=== PATIENT | female | born 1995 | race Two or more races ===

== ENCOUNTER 2020-02-01 14:03 | Outpatient (REF) | payer MEDICAID, SELFPAY | END 2020-02-01 14:04 | disposition home or self-care (01) | LOC: HO.LAB 14:03 | PROVIDERS: Visit Provider Internal Medicine | DX: Z20.828 Contact with and (suspected) exposure to other viral communicable diseases (principal) | CPT/HCPCS: C9803; U0003 ==

== ENCOUNTER 2020-03-29 14:23 | Emergency (ER) | payer MEDICAID, SELFPAY ==
[2020-03-29 14:40] VITALS: BP 113/68; PULSE 83; RESP 18; TEMP 36.2; O2SAT 98; BMI 24.7
--- NOTE | 2020-03-29 15:08 | ED_ITS ---
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 No injury or trauma. The patient tells me that when she was bending down at home to pick something up she fell her low back and has had persistent pain since then. No radiation of pain. No numbness or tingling. No bowel or bladder incontinence. The patient is ambulatory. MD elicited complaint: back pain Onset (ago): day(s) Timing: constant Severity: mild Quality: aching Location: lumbar spine Radiation: none Exacerbating factors: none Relieving factors: none Context: bending Associated symptoms: denies other symptoms Related Data Previous Rx's Medication Instructions Recorded cyclobenzaprine 10 mg PO TID PRN #10 tab 03/29/20 naproxen 500 mg PO BID PRN #20 tab 03/29/20 Allergies Allergy/AdvReac Type Severity Reaction Status Date / Time No Known Drug Allergies Allergy Unknown UNKNOWN Verified 03/29/20 14:39 Review of Systems Review of Systems: Yes all other systems are reviewed and are negative Constitutional: Constitutional: Reports no additional constitutional complaints, Denies body ache(s), Denies chills, Denies fever(s), Denies headache(s) and Denies weakness Eyes: Eyes: Reports no additional eye complaints and Denies change in vision ENT: Reports system reviewed and no additional complaints, except as documen rosalie, Denies dizziness, Denies headache(s), Denies nasal congestion, Denies nasal discharge and Denies neck pain Cardiovascular: Cardiovascular: Reports no additional cardiovascular complaints, Denies chest pain, Denies leg edema and Denies dyspnea Respiratory: Respiratory: Reports no additional respiratory complaints, Denies cough and Denies dyspnea Gastrointestinal: Gastrointestinal: Reports no additional gastrointestinal complaints, Denies abdominal pain, Denies diarrhea, Denies nausea and Denies vomiting Genitourinary: Genitourinary: Reports no additional female genitourinary complaints and Denies urinary incontinence Musculoskeletal: Musculoskeletal: Reports no additional musculoskeletal complaints, Denies back pain, Denies arthralgias, Denies joint swelling, Denies neck pain, Denies numbness and Denies tingling Integumentary/Breasts: Skin/Breast: Reports system reviewed and no additional complaints, except as docu and Denies rash Neurologic: Reports system reviewed and no additional complaints, except as documented, Denies Abnormal speech present, Denies dizziness, Denies headache(s), Denies numbness, Denies tingling and Denies weakness PMFSH Past Medical History Attestation statement: The following information was validated with the patient. Source: old records reviewed and nursing notes reviewed Medical History Epilepsia Social History Social History Advance Directives: No Advance Directives Information Provided: No Physical Exam Vital Signs: Vital Signs: Last Vital Signs Temp 97.2 F 03/29/20 14:40 Pulse 83 03/29/20 14:40 Resp 18 03/29/20 14:40 BP 113/68 03/29/20 14:40 Pulse Ox 98 03/29/20 14:40 Body Mass Index 24.7 Const: General: cooperative, healthy appearing, comfortable and no acute distress Orientation/consciousness: patient oriented x3 Limitations: no limitations HENMT: Head: Yes normal to inspection Ears: hearing grossly normal bilaterally General nose exam: Normal external nose present Face and sinus: Yes normal facial exam Mouth: Normal oral and palatal mucosa present Throat: Yes posterior oropharynx normal Eyes: General: appearance normal, both eyes and all related structures Pupi ls: Equal, round and reactive pupils present Neck: Neck: Yes normal visual inspection Chest: Chest palpation & inspection: normal inspection of the chest Resp: Effort & Inspection: normal respiratory effort Auscultation: clear to auscultation bilaterally Cardio: Rate: regular rate Rhythm: regular rhythm Peripheral pulses: Peripheral pulses 2+ throughout GI: Inspection: Yes normal to inspection Palpation (GI): Soft to palpation and nontender Auscultation: normal bowel sounds Back/Spine/Pelvis: Other: Midline lumbar tenderness. No step-offs or deformities. Thoracic/Lumbar Spine: thoracic and lumbar spine normal to inspection Skin: General skin exam: no rashes or lesions noted Neuro: General: patient oriented x3, no focal motor deficits and normal sensation to monofilament Cranial nerves: Yes Equal, round and reactive pupils present Cognition (Neuro): normal cognition Speech: No Abnormal speech present Gait exam (Neuro): Normal gait present Motor exam (neuro): 5/5 motor strength present throughout Extrem: General: Yes normal to inspection Course Course Course Narrative: 24 yo female here with low back pain x several days. Midline tenderness. Will check imaging, ur , 1600-x-rays unremarkable. Likely lumbar strain. No neurological deficits or red flag symptoms. Reviewed worrisome signs and symptoms and when to return to the emergency department. Comfortable discharge home. MDM - Back Pain/Injury Medical Records Attestation: I reviewed the patient's medical records. Lab Data Attestation: I reviewed the patient's lab results. Labs: Lab Results 03/29/20 Range/Units 15:43 Urine Test NEGATIVE (NEGATIVE) Imaging Data lumbar xray: Attestation: I personally reviewed and interpreted this imaging study as follows: Radiologist's impression: [address] [address] XRay Report Signed Patient: Gabby HarveyMR#: [id number] : 1995Acct:[id number] Age/Sex: 24 / FADM Date: 03/29/20 Loc: HO.ED Attending Dr: Ordering Physician: KIRAN WOLFF NP Date of Service: 03/29/20 Procedure(s): XR lumbar spine 2-3V Accession Number(s): [id number] cc: KIRAN WOLFF NP~ EXAMINATION: XR LUMBOSACRAL SPINE CLINICAL INFORMATION: Low back pain. No trauma COMPARISON: None TECHNIQUE: Three views of the lumbosacral spine. FINDINGS: There is mild straightening of lumbar lordosis. The vertebral heights, alignment and disc heights are normal. There is no visible acute fracture, dislocation or lytic process seen. The soft tissues are normal. XR/XR lumbar spine 2-3V IMPRESSION: Unremarkable lumbar spine exam. Discharge Plan Discharge Clinical Impression: Strain of lumbar region Qualifiers: Encounter type: initial encounter Qualified Code(s): S39.012A - Strain of muscle, fascia and tendon of lower back, initial encounter Patient Disposition: Home, Self-Care Instructions: Low Back Strain (ED) Additional Instructions: Heat or ice Gentle stretching Follow up with her doctor in 5 days if no improvement in symptoms Prescriptions: New naproxen 500 mg tablet 500 mg PO BID PRN (Reason: pain) Qty: 20 RF: 0 cyclobenzaprine 10 mg tablet 10 mg PO TID PRN (Reason: muscle spasm) Qty: 10 RF: 0 Referrals: Physician,Unknown [Primary Care Provider] - 2 days Interventions: ED Discharge Assessment Last Done: 03/29/20 16:11 Discharge Date/Time: 03/29/20 16:35 Print Language: Citizen Of [place]
--- NOTE | 2020-03-29 15:22 | XR_ITS ---
EXAMINATION: XR LUMBOSACRAL SPINE CLINICAL INFORMATION: Low back pain. No trauma COMPARISON: None TECHNIQUE: Three views of the lumbosacral spine. FINDINGS: There is mild straightening of lumbar lordosis. The vertebral heights, alignment and disc heights are normal. There is no visible acute fracture, dislocation or lytic process seen. The soft tissues are normal. XR/XR lumbar spine 2-3V IMPRESSION: Unremarkable lumbar spine exam.
[2020-03-29 15:55] LABS: UPreg QC Valid YES; Urine Pregnancy NEGATIVE (NEGATIVE)
== END 2020-03-29 16:35 | disposition home or self-care (01) ==
PROVIDERS: Nurse Practitioner Family; Emergency Provider Emergency Medicine
DX: S39.012A Strain of muscle, fascia and tendon of lower back, initial encounter (principal); X50.0XXA Overexertion from strenuous movement or load, initial encounter; Y93.89 Activity, other specified; Y92.019 Unspecified place in single-family (private) house as the place of occurrence of the external cause; Y99.9 Unspecified external cause status
CPT/HCPCS: 72100; 81025; 99283

== ENCOUNTER 2020-03-31 15:35 | Outpatient (REF) | payer MEDICAID, SELFPAY | END 2020-03-31 15:36 | disposition home or self-care (01) | LOC: HO.LAB 15:35 | PROVIDERS: Visit Provider Internal Medicine | DX: Z20.828 Contact with and (suspected) exposure to other viral communicable diseases (principal) | CPT/HCPCS: 36415; C9803; U0003 ==

== ENCOUNTER 2020-04-11 10:24 | Outpatient (REF) | payer MEDICAID, SELFPAY | END 2020-04-11 10:25 | disposition home or self-care (01) | LOC: HO.LAB 10:24 | PROVIDERS: Visit Provider Internal Medicine | DX: Z20.822 Contact with and (suspected) exposure to COVID-19 (principal) | CPT/HCPCS: 36415; C9803; U0003 ==

== ENCOUNTER 2020-05-09 12:24 | Outpatient (REF) | payer MEDICAID, SELFPAY | END 2020-05-09 12:25 | disposition home or self-care (01) | LOC: HO.LAB 12:24 | PROVIDERS: Visit Provider Internal Medicine | DX: Z20.822 Contact with and (suspected) exposure to COVID-19 (principal) | CPT/HCPCS: 36415; C9803; U0003; U0005 ==

== ENCOUNTER 2020-06-30 15:37 | Outpatient (REF) | payer MEDICAID, SELFPAY | END 2020-06-30 15:38 | disposition home or self-care (01) | LOC: HO.LAB 15:37 | PROVIDERS: Visit Provider Internal Medicine | DX: Z20.822 Contact with and (suspected) exposure to COVID-19 (principal) | CPT/HCPCS: C9803; U0003; U0005 ==

== ENCOUNTER 2021-09-11 07:50 | Emergency (ER) | payer MEDICAID, SELFPAY ==
--- NOTE | ~2021-09-11 | XR_ITS ---
EXAMINATION: XR SHOULDER, LEFT CLINICAL INFORMATION: Left shoulder pain. COMPARISON: None TECHNIQUE: AP external rotation, Grashey, scapular Y, and axillary views of the left shoulder. FINDINGS: The bones and soft tissues are normal. No fracture. Glenohumeral and acromioclavicular alignment is anatomic with normal joint space. No abnormal soft tissue calcifications. XR/XR shoulder LT min 2V IMPRESSION: Unremarkable left shoulder.
[2021-09-11 07:54] VITALS: BP 118/73; PULSE 73; RESP 18; TEMP 36.8; O2SAT 98; BMI 33.0
--- NOTE | 2021-09-11 08:10 | ED.EXTPRO ---
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 Mode of arrival: ambulatory Limitations: no limitations History of Present Illness MD Complaint: extremity pain Onset (ago): day(s) (1) Pain Consistency: constant Location: left and upper extremity (shoulder) Quality: aching, dull and constant Radiation: none Relieving factors: immobilization Exacerbating factors: range of motion Associated symptoms: denies other symptoms Context: other (states she woke up like this yesterday morning does not remember injury just notes her L shoulder hurts to range it - no prior injury) Related Data Previous Rx's Medication Instructions Recorded cyclobenzaprine 10 mg tablet 10 mg PO TID PRN muscle spasm #10 03/29/20 tabs naproxen 500 mg tablet 500 mg PO BID PRN pain #20 tabs 03/29/20 cyclobenzaprine 10 mg tablet 10 mg PO TID PRN muscle spasm #14 09/11/21 tabs ibuprofen 600 mg tablet 600 mg PO Q6H PRN pain #30 tabs 09/11/21 lidocaine 5 % topical patch 1 patch topical DAILY #30 ea 09/11/21 Allergies Allergy/AdvReac Type Severity Reaction Status Date / Time No Known Drug Allergies Allergy Unknown UNKNOWN Verified 03/29/20 14:39 Review of Systems Review of Systems: Constitutional : No Fever, No Chills ENT/Mouth : No Ear Pain, No Hoarseness, No sore throat Cardiovascular : No Chest Pain, No SOB Respiratory : No Cough, No Dyspnea Gastrointestinal : No Nausea, No Vomiting, No Diarrhea, No abdominal Pain Genitourinary : No Dysuria, No Hematuria Musculoskeletal : positive joint pain, No Myalgias, No Joint Swelling Skin : No Skin lacerations, No rash Neuro : No Weakness, No Numbness, No Loss of Consciousness, No Dizziness, No Headache PMFSH Past Medical History Attestation statement: The following information was validated with the patient. Medical History Epilepsia Social History Social History Alcohol intake: current Alcohol intake frequency: holidays/special occasions only Patient Tobacco Use Status: Current everyday Tobacco user Use of substances other than those prescribed or required for medical reasons: No Advance Directives: No Advance Directives Information Provided: No Patient : No Physical Exam Vital Signs: Vital Signs: Last Vital Signs Temp 98.3 F 09/11/21 08:13 Pulse 73 09/11/21 08:13 Resp 18 09/11/21 08:13 BP 118/73 09/11/21 08:13 Pulse Ox 98 09/11/21 08:13 O2 Del Method 09/11/21 08:13 BMI result Body Mass Index 33.0 Appearance: Alert. Oriented X3. No acute distress. Eyes: Pupils equal, round and reactive to light. ENT: Pharynx normal. Neck: Normal inspection. Neck supple. CVS: Normal heart rate and rhythm. Pulses normal. Respiratory: No respiratory distress. Breath sounds normal. Abdomen: Soft and nontender. Skin: Skin warm and dry. Normal skin color. Normal skin turgor. Extremities: No lower extremity edema. L shoulder ttp along AC joint I can range it but full abduction causes pain - no subluxation felt no deformity seen while laying in bed - distal NV intact Neuro: Oriented X 3. No motor deficit. No sensory deficit. Course Course Course Narrative: xrays normal MDM - Extremity (Nontraumatic) MDM Narrative Medical decision making narrative: 26 yo female with hx of seizures here with c/o L shoulder pain denies trauma known seizure c/o L shoulder pain denies feeling pop when she woke up - I can range the shoulder so dislocation seems unlikely at this time will obtain xray, PO medications, sling - dispo per results and findings. Could be a strain if she had a seizure in the middle of the night or rotator cuff issue - she reports frequent seizures despite medications (did drink saturday night). Procedures Orthopedic Splinting/Casting Injury #1: Side: left Upper Extremity Injury Location: shoulder Upper Extremity Immobilizer: sling/shoulder immobilizer Discharge Plan Discharge Clinical Impression: Left shoulder strain Qualifiers: Encounter type: initial encounter Qualified Code(s): S46.912A - Strain of unspecified muscle, fascia and tendon at shoulder and upper arm level, left arm, initial encounter Patient Disposition: Home, Self-Care Instructions: How to Use a Sling (ED), Shoulder Sprain (ED) Additional Instructions: solo use un cabestrillo luly 3 d?as, si no es mejor, melinda un seguimiento con osborne m?dico normal xray Prescriptions: New cyclobenzaprine 10 mg tablet 10 mg PO TID PRN (Reason: muscle spasm) Qty: 14 0RF lidocaine 5 % adhesive patch,medicated 1 patch topical DAILY Qty: 30 0RF Rx Instructions: leave on most painful area for up to 12 hrs ibuprofen 600 mg tablet 600 mg PO Q6H PRN (Reason: pain) Qty: 30 0RF No Action naproxen 500 mg tablet 500 mg PO BID PRN (Reason: pain) Qty: 20 0RF cyclobenzaprine 10 mg tablet 10 mg PO TID PRN (Reason: muscle spasm) Qty: 10 0RF Referrals: Jani Paulino MD [Primary Care Provider] - 3 days (if not better) Stand Alone Forms: Work/School Release Print Language: Japanese
[2021-09-11 08:13] VITALS: BP 118/73; PULSE 73; RESP 18; TEMP 36.8; O2SAT 98
[2021-09-11] MEDS: Acetaminophen 325 MG TABLET 650 MG PO (08:22)
[2021-09-11] MEDS: Cyclobenzaprine HCl 10 MG TABLET PO (08:22)
== END 2021-09-11 09:13 | disposition home or self-care (01) ==
PROVIDERS: Emergency Provider Emergency Medicine; PCP Internal Medicine
DX: S46.912A Strain of unspecified muscle, fascia and tendon at shoulder and upper arm level, left arm, initial encounter (principal); X58.XXXA Exposure to other specified factors, initial encounter; Y93.9 Activity, unspecified; Y92.9 Unspecified place or not applicable; Y99.9 Unspecified external cause status; Z79.899 Other long term (current) drug therapy; F17.200 Nicotine dependence, unspecified, uncomplicated; Z71.6 Tobacco abuse counseling
CPT/HCPCS: 29105; 73030; 99284

== ENCOUNTER 2022-08-23 14:13 | Emergency (ER) | payer MEDICAID, SELFPAY ==
[2022-08-23 15:07] VITALS: BP 111/53; PULSE 76; RESP 18; TEMP 36.6; O2SAT 100; BMI 27.4
--- NOTE | 2022-08-23 15:11 | ED_ITS ---
HPI - General Adult General Chief complaint: Skin/Abscess/Foreign Body Stated complaint: rash Time Seen by Provider: 08/23/22 15:34 Source: patient and RN notes reviewed Mode of arrival: ambulatory Limitations: no limitations History of Present Illness HPI narrative: This is a [id number], with no known past medical history, presenting to the emergency department with complaints of itchy rash on chest, arms, back, face and stomach for the last 2 days. Patient denies any new soaps, lotions, detergents, or foods. No one in the house with similar symptoms. No hx of similar symptoms in the past. No chest pain or shortness of breath. No difficulty swallowing. No fevers or chills. No other complaints or concerns at this time. MD complaint: Rash Onset (ago): day(s) Relieving factors: none Exacerbating factors: none Associated symptoms: denies other symptoms Related Data Previous Rx's Medication Instructions Recorded cyclobenzaprine 10 mg tablet 10 mg PO TID PRN muscle spasm #10 03/29/20 tabs naproxen 500 mg tablet 500 mg PO BID PRN pain #20 tabs 03/29/20 cyclobenzaprine 10 mg tablet 10 mg PO TID PRN muscle spasm #14 09/11/21 tabs ibuprofen 600 mg tablet 600 mg PO Q6H PRN pain #30 tabs 09/11/21 lidocaine 5 % topical patch 1 patch topical DAILY #30 ea 09/11/21 diphenhydramine HCl 25 mg capsule 25 mg PO TID PRN itching #20 caps 08/23/22 (Benadryl) prednisone 20 mg tablet 40 mg PO DAILY #10 tabs 08/23/22 Allergies Allergy/AdvReac Type Severity Reaction Status Date / Time No Known Drug Allergies Allergy Unknown UNKNOWN Verified 03/29/20 14:39 Review of Systems Review of Systems: Constitutional: No Weight loss, No Fever, No Chills ENT/Mouth: No Ear Pain, No Nasal Congestion, No Sinus Pain, No Hoarseness, No sore throat, No Rhinorrhea, No Swallowing Difficulty Cardiovascular: No Chest Pain, No SOB Respiratory: No Cough, No Sputum, No Wheezing Gastrointestinal: No Nausea, No Vomiting, No Diarrhea, No Constipation, No Abdominal pain Genitourinary: No Dysuria, No Urinary Frequency, No Hematuria, No Urinary Incontinence/retention, No Urgency, No Flank Pain Musculoskeletal: No joint pain, No Myalgias, No Joint Swelling Skin: No Skin Lesions, +rash Neuro: No Weakness, No Numbness, No Paresthesias Yes all other systems are reviewed and are negative Constitutional: Constitutional: Reports as per [facility] Past Medical History Medical History Epilepsia Social History Social History Alcohol intake: current Alcohol intake frequency: holidays/special occasions only Patient Tobacco Use Status: Current everyday Tobacco user Advance Directives: No Advance Directives Information Provided: No Physical Exam ED Vital Signs: Vital Signs - 24 hr 08/23/22 15:07 Temperature 98 F Pulse Rate 76 Respiratory Rate 18 Blood Pressure 111/53 L Pulse Oximetry 100 Oxygen Delivery Method Room Air BMI result Body Mass Index 27.4 Const General: cooperative, comfortable and no acute distress Orientation/consciousness: patient oriented x3 Limitations: no limitations HENMT Head: Yes normal to inspection, Yes normocephalic and Yes atraumatic Ears: hearing grossly normal bilaterally General nose exam: Normal external nose present Face and sinus: Yes normal facial exam Mouth: Normal oral and palatal mucosa present, oropharynx normal and moist mucous membranes Throat: Yes posterior oropharynx normal Eyes General: appearance normal, both eyes and all related structures Eyelids: Yes eyelids normal Conjunctivae: conjunctivae normal Sclerae: sclerae normal Pupils: Equal, round and reactive pupils present EOM: EOMs intact bilaterally Neck Neck: Yes normal visual inspection, Yes full ROM and Yes no lymphadenopathy Lymphatic: no lymphadenopathy noted Chest Chest palpation & inspection: normal inspection of the chest Resp Other: No stridor Effort & Inspection: normal respiratory effort and able to speak in complete sentences Auscultation: clear to auscultation bilaterally, no crackles, no rales, no rhonchi and no wheezes Cardio Rate: regular rate Rhythm: regular rhythm Heart sounds: S1 normal heart sound present and S2 normal heart sound present GI Inspection: Yes normal to inspection Skin Other: Diffuse hives noted throughout neck, bilateral arms, back, abdomen. Mild excoriations, no drainage. Trauma: no lacerations or abrasions Wounds: no wounds Neuro General: patient oriented x3 and moves all extremities Cranial nerves: Yes Equal, round and reactive pupils present Extrem General: Yes normal to inspection Right upper extremity: normal to inspection Left upper extremity: normal to inspection Right lower extremity: normal to inspection Left lower extremity: normal to inspection Course Course Course Narrative: This is a 26-year-old female, with a past medical history of seizures, who presents to the emergency department for evaluation of itchy rash on face, bilateral arms and chest the last Medical Decision Making Medical Decision Making MDM Narrative: [id number]-female presenting to the emergency department with complaints of itchy rash x 2 days. No dyspnea, difficulty swallowing or breathing. Denies new exposures. On exam, diffuse hives noted to chest arms, back, face and abdomen with some excoriations. VSS. No fevers. No oral edema, stridor or difficulty swallowing or breathing. Exam and presentation consistent with contact dermatitis. Will treat with benadryl and course of prednisone. Given return precautions if any new or worsening symptoms occur. Pt understands and agrees with plan. Differential Diagnosis Differential Diagnoses: The differential diagnosis associated with the presentation includes contact dermatitis, cellulitis Admission/Observation Consideration of admission/observation: Escalation of care including admission/observation considered Lab Data MDM Lab Attestation statement: I reviewed the patient's lab results. Radiology Impression Discussion of test interpretation with radiology: I have reviewed the radiologist's reading. External Record Review External record reviewed: Inpatient record, Office record, Outpatient record, Prior outpatient labs, Prior outpatient radiology, Primary care record and Outside ED record Discharge Plan Discharge Clinical Impression: Contact dermatitis Patient Disposition: Home, Self-Care Instructions: Contact Dermatitis (ED) Additional Instructions: Please take prescribed medication as directed. Please be aware that benadryl will cause drowsiness, do not drink alcohol or drive while taking this. Drink plenty of fluids and get plenty of rest. Use soaps, lotions and detergents that are made for sensitive skin. Call your doctor today to follow up regarding your visit today as they may want to do further additional testing. If any new or worsening symptoms occur, including difficulty swallowing or breathing, please return for further evaluation. [employer] los medicamentos recetados seg?n las indicaciones. la crema t?pica de benadryl o cortisona tambi?n puede ayudar Tenga en cuenta que benadryl causar? somnolencia, no linda alcohol ni conduzca mientras lo ila. Linda muchos l?quidos y descanse lo suficiente. Use jabones, lociones y detergentes hechos para pieles sensibles. Llame a osborne m?dico hoy para hacer un seguimiento de osborne visita de hoy, ya que es posible que desee realizar m?s pruebas adicionales. Si se presentan s?ntomas nuevos o que empeoran, incluida la dificultad para tragar o respirar, regrese para troy evaluaci?n adicional. Prescriptions: New prednisone 20 mg tablet 40 mg PO DAILY Qty: 10 0RF diphenhydramine HCl [Benadryl] 25 mg capsule 25 mg PO TID PRN (Reason: itching) Qty: 20 0RF No Action naproxen 500 mg tablet 500 mg PO BID PRN (Reason: pain) Qty: 20 0RF cyclobenzaprine 10 mg tablet 10 mg PO TID PRN (Reason: muscle spasm) Qty: 10 0RF cyclobenzaprine 10 mg tablet 10 mg PO TID PRN (Reason: muscle spasm) Qty: 14 0RF lidocaine 5 % adhesive patch,medicated 1 patch topical DAILY Qty: 30 0RF Rx Instructions: leave on most painful area for up to 12 hrs ibuprofen 600 mg tablet 600 mg PO Q6H PRN (Reason: pain) Qty: 30 0RF Interventions: ED Discharge Assessment Last Done: 08/23/22 16:26 Discharge Date/Time: 08/23/22 16:27 Print Language: Upper Sorbian
--- OUTSIDE RECORDS SUMMARY | 2022-08-23 15:42 | XMS_ITS | Continuity of Care Document ---
Author Name Unknown Organization [facility] Address [address] [place] [address]- Care Team Providers Care Manager Laundry Name Role Phone Chava LOUIS, Jennifer Lizarraga Primary Care Physician [phone] Encounter [facility] [place] Date(s): 11/17/19 - 12/17/[address] [address]- [facility] Attending Physician: Admthierry, Blanca Admitting Physician: AdmtrBlanca Referring Physician: Admtr, Ar8 Allergies, Adverse Reactions, Alerts Substance Reaction Severity Status NKA Active Immunizations Given and Recorded Vaccine Date Status Refusal Reason influenza virus vaccine, inactivated 03/16/15 Give n influenza virus vaccine, inactivated 03/29/14 Give n tetanus/diphtheria/pertussis, acel(Tdap) 08/23/14 Given Not Given Vaccine Date Status Refusal Reason influenza virus vaccine, inactivated 1 06/10/19 No t Given Patient Refuses influenza virus vaccine, inactivated 2 12/22/14 No t Given Patient Refuses pneumococcal 23-valent vaccine 3 06/10/19 Not Give n Patient Refuses pneumococcal 23-valent vaccine 4 12/22/14 Not Give n Patient Refuses 1Result Comment: Patient refused. 2Result Note: CDC-VIS sheet given in Central African, patient refused 3Result Comment: Patient refused. 4Result Note: CDC-VIS sheet given in [place] African, patient refused Medications carbamazepine 200 mg oral capsule, extended release 3 capsules, By Mouth, 2 times a day, # 180 tablet, 5 Refills, Maintenance, 04/29/19 15:20:00 EST, [id number], 157.4, cm, 04/29/19 14:51:00 EST, Height Start Date: 04/29/19 Stop Date: 10/26/19 Status: Ordered clonazePAM 1 mg oral tablet, disintegrating See Instructions, Take at onset of seizure, # 5 tablet, 3 Refills, Maintenance, 01/16/18 13:18:08 EDT Start Date: 01/16/18 Status: Ordered Colace sodium 100 mg oral capsule 100 mg, 1, capsule, By Mouth, Daily, prn constipation, Refills 0, Maintenance, 06/09/19 11:03:00 EDT Start Date: 06/09/19 Status: Ordered Colace sodium 100 mg oral capsule 100 mg, 1, capsule, By Mouth, 2 times a day, PRN, # 20 capsule, Refills 0, Tot. Refills 0, Maintenance, for constipation, 10/15/19 16:42:00 EDT, Route to Pharmacy Electronically, [facility]/pharmacy #[id number], 157.48, cm, 10/15/19 14:13:00 EDT, Height, 80.4, kg,... Start Date: 10/15/19 Status: Ordered gabapentin 400 mg oral capsule See Instructions, # 270 capsule, Refills 11 Tot. Refills 11, TAKE 3 CAPSULE BY MOUTH 3 TIMES A DAY,[facility]/pharmacy #[id number] Start Date: 01/08/19 Status: Ordered Vitamin D3 = 2,000 International_Units, By Mouth, Daily, 0 Refills, Maintenance, 12/12/15 11:23:49 Start Date: 12/12/15 Status: Ordered Problem List Condition Effective Dates Status Health Status Inform ant Bug bites(Confirmed) 02/26/14 Active Epilepsy(Confirmed) 2006 Active Uses Central African as primary spok en language(Confirmed) Active Social History Social History Type Response Smoking Status Current some day smo ker entered on: 06/08/14 Sex
--- OUTSIDE RECORDS SUMMARY | 2022-08-23 15:42 | XMS_ITS | Continuity of Care Document ---
Author Name Unknown Organization [facility] Address [address] [facility], [address] Floor, [address] [place] [address]- Care Team Providers Care Manager Client Support Name Role Phone Chava LOUIS, Jennifer Lizarraga Primary Care Physician Encounter [facility] Date(s): 04/12/20 - 05/12/20 [facility] [address], [address], [address] [place] [id number] Allergies, Adverse Reactions, Alerts Substance Reaction Severity [...] refused. 2Result Note: CDC-VIS sheet given in Dutch, patient refused 3Result Comment: Patient refused. 4Result Note: CDC-VIS sheet given in Dutch, patient refused Medications carbamazepine 200 mg oral capsule, extended release 3 capsule, By Mouth, 2 times a day, # 180 capsule, 5 Refills, Maintenance, 01/04/20 8:07:00 EDT, [facility], 157.48, cm, 11/17/19 15:36:00 EDT, Height, 80.4, kg, 10/15/19 14:13:00 EDT, Dry Weight Start Date: 01/04/20 Status: Ordered clonazePAM 1 mg oral tablet, [...] 10/15/19 16:42:00 EDT, Route to Pharmacy Electronically, [facility]/pharmacy #[id number], 157.48, cm, 10/15/19 14:13:00 EDT, Height, 80.4, kg,... Start Date: 10/15/19 Status: Ordered gabapentin 400 mg oral capsule 3, capsule, By Mouth, 3 times a day, # 270 capsule, Refills 11, Tot. Refills 0, Maintenance, 04/12/20 17:01:00 EST, Route to Pharmacy Electronically, [facility] 30[facility], 157.48, cm, 11/17/19 15:36:00 EDT, Height, 80.4, kg, 10/15/19 14:13:00 EDT, Dry Weight Start Date: 04/12/20 Status: Ordered Vitamin D3 = 2,000 International_Units, By Mouth, Daily, 0 Refills, Maintenance, 12/12/15 11:23:49 Start Date: 12/12/15 Status: Ordered Problem List Condition Effective Dates Status Health Status Inform ant Bug bites(Confirmed) 02/26/14 Active Epilepsy(Confirmed) 2006 Active Uses Dutch as primary spok en language(Confirmed) Active Social History Social History Type Response Smoking Status Current some day smo ker entered on: 06/08/14 Sex
--- OUTSIDE RECORDS SUMMARY | 2022-08-23 15:42 | XMS_ITS | Continuity of Care Document ---
Author Name Unknown Organization [facility] Address [address] [facility], 3r [address] Floor, [address] [place] [address]- Care Team Providers Care Set Up Mechanic Automatic Line Name Role Phone Chava LOUIS, Jennifer Lizarraga Primary Care Physician [phone] Encounter [facility] R [id number] Date(s): 10/17/21 - 12/29/21 [facility] [address], [address], [address] [place] [address]- Attending Physician: Korey Downing Admitting Physician: Korey Downing Referring Physician: Jennifer Larsen MD Allergies, Adverse Reactions, Alerts No Known Allergies Immunizations Given and Recorded Vaccine Date Status [...] refused. 2Result Note: CDC-VIS sheet given in Sammarinese, patient refused 3Result Comment: Patient refused. 4Result Note: CDC-VIS sheet given in Sammarinese, patient refused Medications carbamazepine 200 mg oral capsule, extended release 3 capsule, By Mouth, 2 times a day, for 90 days, # 540 capsule, 3 Refills, Physician Stop 07/20/22 16:14:00 EDT, 07/25/21 16:14:00 EDT, [id number], 157.48, cm, 11/17/19 15:36:00 EDT, Height, 80.4, kg, 10/15/19 14:13:00 EDT, Dry Weight Start Date: 07/25/21 Stop Date: 07/20/22 Status: Ordered clonazePAM 1 mg oral tablet, [...] 10/15/19 16:42:00 EDT, Route to Pharmacy Electronically, [facility]/pharmacy #[id number], 157.48, cm, 10/15/19 14:13:00 EDT, Height, 80.4, kg,... Start Date: 10/15/19 Status: Ordered gabapentin 400 mg oral capsule 3, capsule, By Mouth, 3 times a day, for 90 days, # 810 capsule, Refills 3, Tot. Refills 3, Physician Stop 07/20/22 16:14:00 EDT, 07/25/21 16:14:00 EDT, Route to Pharmacy Electronically, [facility]/pharmacy#[id number], 157.48, cm, 11/17/19 15:36:00 EDT, Height, 8... Start Date: 07/25/21 Stop Date: 07/20/22 Status: Ordered Vitamin D3 = 2,000 International_Units, By Mouth, Daily, 0 Refills, Maintenance, 12/12/15 11:23:49 Start Date: 12/12/15 Status: Ordered Problem List Condition Confirmation Course Effective Dates Status Health St [facility]us Informant Bug bites Confirmed 02/26/14 Active Epilepsy Confirmed 2006 Active Uses Sammarinese as primary spoken language Confirmed Active Obese class I Confirmed Active Social History Social History Type Response Smoking Status Current some day smo ker entered on: 06/08/14 Sex Patient Care team information Personnel Name: Chava LOUIS, Jennifer Lizarraga Address: Address: [address], [place] [address]
--- OUTSIDE RECORDS SUMMARY | 2022-08-23 15:42 | XMS_ITS | Continuity of Care Document ---
Author Name Unknown Organization [facility] Address [address] [place] [address]- Care Team Providers Care Rug Scratcher Name Role Phone Gato LOUIS, Bryan Ribeiro Primary Care Physician [place] [facility]/09/19 - 06/14/[address] [address]- [facility] Discharge Disposition: A-D/C Home Attending Physician: Ricardo Solorio MD Admitting Physician: Ricardo Solorio MD Referring Physician: Jade Lopez NP Allergies, Adverse Reactions, Alerts Substance Reaction Severity [...] refused. 2Result Note: CDC-VIS sheet given in Hungarian, patient refused 3Result Comment: Patient refused. 4Result Note: CDC-VIS sheet given in Hungarian, patient refused Medications carbamazepine 200 mg oral [...] 11:03:00 EDT Start Date: 06/09/19 Status: Ordered folic acid 1 mg oral tablet See Instructions, 1 a day, 4 pills a day if possible, # 360 tablet, Refills 11, Tot. Refills 11, Maintenance, 10/23/18 9:26:50 EDT, Instructions Replace Required Details, Route to Pharmacy Electronically, [id number]... Start Date: 10/23/18 Status: Ordered gabapentin 400 mg oral capsule See Instructions, # 270 capsule, Refills 11 Tot. Refills 11, TAKE 3 CAPSULE BY MOUTH 3 TIMES A DAY,[id number] Start Date: 01/08/19 Status: Ordered Nexplanon 68 mg subcutaneous implant 1 each = 68 mg, Subcutaneous Infusion, Once, [facility] stock device. Placed by Dr. Rajan 10/14/2018 LOT #: [id number] Exp: 07/2020, 0 Refills, Maintenance, 10/15/18 11:40:04 EDT Start Date: 10/15/18 Status: Ordered Vitamin D3 = 2,000 International_Units, By Mouth, Daily, 0 Refills, Maintenance, 12/12/15 11:23:49 Start Date: 12/12/15 Status: Ordered Problem List Condition Effective Dates Status Health Status Inform ant Bug bites(Confirmed) 02/26/14 Active Epilepsy(Confirmed) 2006 Active Uses Hungarian as primary spok en language(Confirmed) Active Vital Signs Most recent to oldest [Reference Range]: 1 2 3 Height 157.48 cm (06/13/19 8:24 PM) 157.48 cm (06/12/19 7:40 PM) 157.48 cm (06/12/19 1:25 PM) Weight 81.81 kg (06/09/19 8:35 AM) Oxygen Saturation [94-100 %] 100 % (06/14/19 11:18 AM) 100 % (06/14/19 7:51 AM) 100 % (06/13/19 8:24 PM) Pulse Rate [55-90 bpm] 71 bpm (06/14/19 11:18 AM) 78 bpm (06/14/19 7:51 AM) 78 bpm (06/13/19 8:24 PM) Body Mass Index [18.5-24.99] 32.99 *>HHI* (06/09/19 8:35 AM) Blood Pressure [90-138/55-84 mm Hg] 120/70mm Hg (06/14/19 11:18 AM) 119/67mm Hg (06/14/19 7:51 AM) 116/67mm Hg (06/13/19 8:24 PM) Respiratory Rate [16-30 br/min] 20 br/min (06/14/19 11:18 AM) 18 br/min (06/14/19 9:10 AM) 20 br/min (06/14/19 7:51 AM) Temperature [96.8-100.4 DegF] 98 DegF (06/14/19 11:18 AM) 98.3 DegF (06/14/19 7:51 AM) 98 DegF (06/13/19 8:24 PM) Mode of Delivery (Oxygen) Room air (06/14/19 11:18 AM) Room air (06/14/19 7:51 AM) Room air (06/13/19 8:24 PM) Blood pressure sites Arm, right (06/14/19 11:18 AM) Arm, right (06/14/19 7:51 AM) Arm, right (06/13/19 8:24 PM) Temperature Route Temporal (06/14/19 11:18 AM) Oral (06/14/19 7:51 AM) Temporal (06/13/19 8:24 PM) Dry Weight 81.81 kg (06/09/19 8:35 AM) Sensory deficits None (06/09/19 8:35 AM) Mobility assistance Independent (06/09/19 8:35 AM) Social History Social History Type Response Smoking Status Current some day smo ker entered on: 06/08/14 Sex
--- OUTSIDE RECORDS SUMMARY | 2022-08-23 15:43 | XMS_ITS | Continuity of Care Document ---
Author Name Unknown Organization [facility] Address [address], [address], [address] [place] [phone]- Care Team Providers Care Natural Developer Name Role Phone Chava LOUIS, Jennifer Lizarraga Primary Care Physician [place] [facility] 07/18/21 - 11/15/21 [facility] [address], [address], [address] [place] [address]- Attending Physician: Korey Downing Admitting Physician: Korey Downing Allergies, Adverse Reactions, Alerts No Known Allergies [...] refused. 2Result Note: CDC-VIS sheet given in Greek, patient refused 3Result Comment: Patient refused. 4Result Note: CDC-VIS sheet given in Greek, patient refused Medications carbamazepine 200 mg oral [...] 10/15/19 16:42:00 EDT, Route to Pharmacy Electronically, [facility]/pharmacy #[id number], 157.48, cm, 10/15/19 14:13:00 EDT, Height, 80.4, kg,... Start Date: 10/15/19 Status: Ordered gabapentin 400 mg oral capsule 3, capsule, By Mouth, 3 times a day, for 90 days, # 810 capsule, Refills 3, Tot. Refills 3, Physician Stop 07/20/22 16:14:00 EDT, 07/25/21 16:14:00 EDT, Route to Pharmacy Electronically, [facility]/pharmacy#[id number], 157.48, cm, 11/17/19 15:36:00 EDT, Height, 8... Start Date: 07/25/21 Stop Date: 07/20/22 Status: Ordered Vitamin D3 = 2,000 International_Units, By Mouth, Daily, 0 Refills, Maintenance, 12/12/15 11:23:49 Start Date: 12/12/15 Status: Ordered Problem List Condition Effective Dates Status Health Status Inform ant Bug bites(Confirmed) 02/26/14 Active Epilepsy(Confirmed) 2007 Active Uses Greek as primary spok en language(Confirmed) Active Social History Social History Type Response Smoking Status Current some day smo ker entered on: 06/08/14 Sex
--- OUTSIDE RECORDS SUMMARY | 2022-08-23 15:43 | XMS_ITS | Continuity of Care Document ---
Author Name Unknown Organization [facility] Address [address] [facility], [address]r d Floor, [address] [place] [address]- Care Team Providers Care Chief Of Production Name Role Phone Bryan Hoskins MD Primary Care Physician Encounter [facility] Date(s): 04/29/19 - 05/09/19 [facility] [address], [address], [address] [place] [address] [facility] Attending Physician: Blanca Hernandez Admitting Physician: AdmtrBlanca Referring Physician: Admtr, Ar8 Allergies, Adverse Reactions, Alerts Substance Reaction Severity Status NKA Active Immunizations Given and Recorded Vaccine Date Status Refusal Reason influenza virus vaccine, inactivated 03/16/15 Give n influenza virus vaccine, inactivated 03/29/14 Give n tetanus/diphtheria/pertussis, acel(Tdap) 08/23/14 Given Not Given Vaccine Date Status Refusal Reason influenza virus vaccine, inactivated 1 12/22/14 No t Given Patient Refuses pneumococcal 23-valent vaccine 2 12/22/14 Not Give n Patient Refuses 1Result Note: CDC-VIS sheet given in Romanian, patient refused 2Result Note: CDC-VIS sheet given in Romanian, patient refused Medications carbamazepine 200 mg oral [...] 13:18:08 EDT Start Date: 01/16/18 Status: Ordered folic acid 1 mg oral tablet See Instructions, 1 a day, 4 pills a day if possible, # 360 tablet, Refills 11, Tot. Refills 11, Maintenance, 10/23/18 9:26:50 EDT, Instructions Replace Required Details, Route to Pharmacy Electronically, [id number]... Start Date: 10/23/18 Status: Ordered gabapentin 400 mg oral capsule See Instructions, # 270 capsule, Refills 11 Tot. Refills 11, TAKE 3 CAPSULE BY MOUTH 3 TIMES A DAY,[id number] Start Date: 01/08/19 Status: Ordered Nexplanon 68 mg subcutaneous implant 1 each = 68 mg, Subcutaneous Infusion, Once, [facility] stock device. Placed by Dr. Rajan 10/14/2018 LOT #: [id number] Exp: 07/2020, 0 Refills, Maintenance, 10/15/18 11:40:04 EDT Start Date: 10/15/18 Status: Ordered Vimpat 50 mg oral tablet See Instructions, 1 tab twice a day x 1 week, then 2 tabs twice a day., # 120 tablet, 5 Refills, Maintenance, 01/23/19 10:41:02 EDT Start Date: 01/23/19 Status: Ordered Vitamin D3 = 2,000 International_Units, By Mouth, Daily, 0 Refills, Maintenance, 12/12/15 11:23:49 Start Date: 12/12/15 Status: Ordered Problem List Condition Effective Dates Status Health Status Inform ant Bug bites(Confirmed) 02/26/14 Active Epilepsy(Confirmed) 2006 Active Social History Social History Type Response Smoking Status Current some day smo ker entered on: 06/08/14 Sex
--- OUTSIDE RECORDS SUMMARY | 2022-08-23 15:43 | XMS_ITS | Continuity of Care Document ---
Author Name Unknown Organization [facility] Address Unknown Care Team Providers Care Operations Trainer Name Role Phone Chava LOUIS, Jennifer Lizarraga Primary Care Physician Encounter [facility] Date(s): 05/08/21 - 06/07/21 [facility] Allergies, Adverse Reactions, Alerts No Known Allergies [...] refused. 2Result Note: CDC-VIS sheet given in Venezuelan, patient refused 3Result Comment: Patient refused. 4Result Note: CDC-VIS sheet given in Venezuelan, patient refused Medications carbamazepine 200 mg oral capsule, extended release 3 capsule, By Mouth, 2 times a day, # 180 capsule, 5 Refills, [facility], 157.48, cm, 11/16/2014:36:00 EDT, Height, 80.4, kg, 10/15/19 14:13:00 EDT, Dry Weight Start Date: 01/19/21 Status: Ordered clonazePAM 1 mg oral tablet, [...] 10/15/19 16:42:00 EDT, Route to Pharmacy Electronically, [facility]/pharmacy #[id number], 157.48, cm, 10/15/19 14:13:00 EDT, Height, 80.4, kg,... Start Date: 10/15/19 Status: Ordered gabapentin 400 mg oral capsule 3, capsule, By Mouth, 3 times a day, # 270 capsule, Refills 11, Route to Pharmacy Electronically, [facility], 157.48, cm, 11/17/19 15:36:00 EDT, Height, 80.4, kg, 10/15/19 14:13:00 EDT, Dry Weight Start Date: 04/24/21 Status: Ordered Vitamin D3 = 2,000 International_Units, By Mouth, Daily, 0 Refills, Maintenance, 12/12/15 11:23:49 Start Date: 12/12/15 Status: Ordered Problem List Condition Effective Dates Status Health Status Inform ant Bug bites(Confirmed) 02/26/14 Active Epilepsy(Confirmed) 2006 Active Uses Venezuelan as primary spok en language(Confirmed) Active Social History Social History Type Response Smoking Status Current some day smo ker entered on: 06/08/14 Sex
--- OUTSIDE RECORDS SUMMARY | 2022-08-23 15:43 | XMS_ITS | Continuity of Care Document ---
Author Name Unknown Organization [facility] Address [address] [place] [address]- Care Team Providers Care Client Success Director Name Role Phone Chava LOUIS, Jennifer Lizarraga Primary Care Physician Encounter [facility] [place] Date(s): 12/10/19 - 01/09/[address] [address]- [facility] Allergies, Adverse Reactions, Alerts Substance Reaction Severity [...] refused. 2Result Note: CDC-VIS sheet given in Yoruba, patient refused 3Result Comment: Patient refused. 4Result Note: CDC-VIS sheet given in Yoruba, patient refused Medications carbamazepine 200 mg oral capsule, extended release 3 capsule, By Mouth, 2 times a day, # 180 capsule, 5 Refills, Maintenance, 01/04/20 8:07:00 EDT, [facility], 157.48, cm, 11/17/19 15:36:00 EDT, Height, 80.4, [...] 10/15/19 16:42:00 EDT, Route to Pharmacy Electronically, [facility]/pharmacy #[id number], 157.48, cm, 10/15/19 14:13:00 EDT, Height, 80.4, kg,... Start Date: 10/15/19 Status: Ordered gabapentin 400 mg oral capsule See Instructions, # 270 capsule, Refills 11 Tot. Refills 11, TAKE 3 CAPSULE BY MOUTH 3 TIMES A DAY,[facility]/pharmacy #[id number] Start Date: 01/08/19 Status: Ordered Vitamin D3 = 2,000 International_Units, By Mouth, Daily, 0 Refills, Maintenance, 12/12/15 11:23:49 Start Date: 12/12/15 Status: Ordered Problem List Condition Effective Dates Status Health Status Inform ant Bug bites(Confirmed) 02/26/14 Active Epilepsy(Confirmed) 2006 Active Uses Yoruba as primary spok en language(Confirmed) Active Social History Social History Type Response Smoking Status Current some day smo ker entered on: 06/08/14 Sex
--- OUTSIDE RECORDS SUMMARY | 2022-08-23 15:43 | XMS_ITS | Continuity of Care Document ---
Author Name Unknown Organization [facility] Address [address], [address], [address] [place] [address]- Care Team Providers Care Muffle Worker Name Role Phone Chava LOUIS, Jennifer Lizarraga Primary Care Physician Encounter [facility] [place] Date(s): 11/05/19 - 12/05/19 [facility] [address], [address], [address] [place] [address] [facility] Allergies, Adverse Reactions, Alerts Substance Reaction Severity [...] refused. 2Result Note: CDC-VIS sheet given in Slovenian, patient refused 3Result Comment: Patient refused. 4Result Note: CDC-VIS sheet given in Slovenian, patient refused Medications carbamazepine 200 mg oral capsule, extended release 3 capsules, By Mouth, 2 times a day, # 180 tablet, 5 Refills, Maintenance, 04/29/19 15:20:00 EST, [facility]/pharmacy #[id number], 157.4, cm, 04/29/19 14:51:00 EST, Height [...] 10/15/19 16:42:00 EDT, Route to Pharmacy Electronically, [facility]/pharmacy #[id number], 157.48, cm, 10/15/19 14:13:00 EDT, Height, 80.4, kg,... Start Date: 10/15/19 Status: Ordered gabapentin 400 mg oral capsule See Instructions, # 270 capsule, Refills 11 Tot. Refills 11, TAKE 3 CAPSULE BY MOUTH 3 TIMES A DAY,[facility]/pharmacy #207 Start Date: 01/08/19 Status: Ordered metroNIDAZOLE 500 mg oral tablet 1 tablet = 500 mg, By Mouth, Every 12 hours, for 7 days, # 14 tablet, 0 Refills, Acute 12/06/19 3:05:00 EDT, 11/29/19 3:05:00 EDT, Tablet, [facility]/pharmacy #[id number], 157.48, cm, 11/17/19 15:36:00 EDT, Height, 80.4, kg, 10/15/19 14:13:00 EDT, Dry Weight Start Date: 11/29/19 Stop Date: 12/06/19 Status: Ordered Vitamin D3 = 2,000 International_Units, By Mouth, Daily, 0 Refills, Maintenance, 12/12/15 11:23:49 Start Date: 12/12/15 Status: Ordered Problem List Condition Effective Dates Status Health Status Inform ant Bug bites(Confirmed) 02/26/14 Active Epilepsy(Confirmed) 2006 Active Uses Slovenian as primary spok en language(Confirmed) Active Social History Social History Type Response Smoking Status Current some day smo ker entered on: 06/08/14 Sex
--- OUTSIDE RECORDS SUMMARY | 2022-08-23 15:43 | XMS_ITS | Continuity of Care Document ---
Author Name Unknown Organization [facility] Address Unknown Care Team Providers Care Extrusion Utility Worker Name Role Phone Chava LOUIS, Jennifer Lizarraga [id number] - 09[facility]07/[facility] Attending Physician: Korey Downing Admitting Physician: Korey [...] refused. 2Result Note: CDC-VIS sheet given in Grenadian, patient refused 3Result Comment: Patient refused. 4Result Note: CDC-VIS sheet given in Grenadian, patient refused Medications carbamazepine 200 mg oral capsule, extended release 3 capsule, By Mouth, 2 times a day, for 90 days, # 540 capsule, 3 Refills, Physician Stop 07/20/22 16:14:00 EDT, 07/25/21 16:14:00 EDT, [facility]/pharmacy #[id number], 157.48, cm, 11/17/19 15:36:00 EDT, Height, [...] 10/15/19 16:42:00 EDT, Route to Pharmacy Electronically, [facility]/pharmacy #[id number], 157.48, cm, 10/15/19 14:13:00 EDT, Height, 80.4, kg,... Start Date: 10/15/19 Status: Ordered gabapentin 400 mg oral capsule 3, capsule, By Mouth, 3 times a day, for 90 days, # 810 capsule, Refills 3, Tot. Refills 3, Physician Stop 07/20/22 16:14:00 EDT, 07/25/21 16:14:00 EDT, Route to Pharmacy Electronically, [facility]/pharmacy#[id number], 157.48, cm, 11/17/19 15:36:00 EDT, Height, 8... Start Date: 07/25/21 Stop Date: 07/20/22 Status: Ordered Vitamin D3 = 2,000 International_Units, By Mouth, Daily, 0 Refills, Maintenance, 12/12/15 11:23:49 Start Date: 12/12/15 Status: Ordered Problem List Condition Effective Dates Status Health Status Inform ant Bug bites(Confirmed) 02/26/14 Active Epilepsy(Confirmed) 2006 Active Uses Grenadian as primary spok en language(Confirmed) Active Social History Social History Type Response Smoking Status Current some day smo ker entered on: 06/08/14 Sex
--- OUTSIDE RECORDS SUMMARY | 2022-08-23 15:43 | XMS_ITS | Continuity of Care Document ---
Author Name Unknown Organization [facility] Address [address] [place] [address]- Care Team Providers Care Spinal Surgeon Name Role Phone Chava LOUIS, Jennifer Lizarraga Primary Care Physician [phone] Encounter [facility] Date(s): 10/20/19 - 11/19/19 [facility] [address] [place] [address]- [facility] Allergies, Adverse Reactions, Alerts Substance Reaction [...] refused. 2Result Note: CDC-VIS sheet given in Japanese, patient refused 3Result Comment: Patient refused. 4Result Note: CDC-VIS sheet given in Japanese, patient refused Medications carbamazepine 200 mg oral capsule, extended release 3 capsules, By Mouth, 2 times a day, # 180 tablet, 5 Refills, Maintenance, 04/29/19 15:20:00 EST, [facility]/pharmacy #[id number], 157.4, cm, 04/29/19 14:51:00 EST, Height [...] 10/15/19 16:42:00 EDT, Route to Pharmacy Electronically, [facility]/pharmacy #[id number], 157.48, cm, 10/15/19 14:13:00 EDT, Height, 80.4, kg,... Start Date: 10/15/19 Status: Ordered gabapentin 400 mg oral capsule See Instructions, # 270 capsule, Refills 11 Tot. Refills 11, TAKE 3 CAPSULE BY MOUTH 3 TIMES A DAY,[facility]/pharmacy #[id number] Start Date: 01/08/19 Status: Ordered Vitamin D3 = 2,000 International_Units, By Mouth, Daily, 0 Refills, Maintenance, 12/12/15 11:23:49 Start Date: 12/12/15 Status: Ordered Problem List Condition Effective Dates Status Health Status Inform ant Bug bites(Confirmed) 02/26/14 Active Epilepsy(Confirmed) 2006 Active Uses Japanese as primary spok en language(Confirmed) Active Social History Social History Type Response Smoking Status Current some day smo ker entered on: 06/08/14 Sex
--- OUTSIDE RECORDS SUMMARY | 2022-08-23 15:44 | XMS_ITS | Continuity of Care Document ---
Author Name Unknown Organization [facility] Kaylyn mcnulty's [facility] Address [address], [address] [place] [address]- Care Team Providers Care Radiology Equipment Servicer Name Role Phone Chava LOUIS, Jennifer Lizarraga Primary Care Physician Encounter [facility] [place] [facility] Date(s): 12/04/19 - 01/03/20 [facility] Kaylyn Diazs [facility] [address] [place] [address]- [facility] Allergies, Adverse Reactions, Alerts Substance Reaction [...] refused. 2Result Note: CDC-VIS sheet given in Moroccan, patient refused 3Result Comment: Patient refused. 4Result Note: CDC-VIS sheet given in Moroccan, patient refused Medications carbamazepine 200 mg oral capsule, extended release 3 capsules, By Mouth, 2 times a day, # 180 tablet, 5 Refills, Maintenance, 04/29/19 15:20:00 EST, [facility]/pharmacy #[id number], 157.4, cm, 04/29/19 14:51:00 EST, [...] 10/15/19 16:42:00 EDT, Route to Pharmacy Electronically, [facility]/pharmacy #[id number], 157.48, cm, 10/15/19 14:13:00 EDT, Height, 80.4, kg,... Start Date: 10/15/19 Status: Ordered gabapentin 400 mg oral capsule See Instructions, # 270 capsule, Refills 11 Tot. Refills 11, TAKE 3 CAPSULE BY MOUTH 3 TIMES A DAY,[facility]/pharmacy #[id number] Start Date: 01/08/19 Status: Ordered Vitamin D3 = 2,000 International_Units, By Mouth, Daily, 0 Refills, Maintenance, 12/12/15 11:23:49 Start Date: 12/12/15 Status: Ordered Problem List Condition Effective Dates Status Health Status Inform ant Bug bites(Confirmed) 02/26/14 Active Epilepsy(Confirmed) 2006 Active Uses Moroccan as primary spok en language(Confirmed) Active Social History Social History Type Response Smoking Status Current some day smo ker entered on: 06/08/14 Sex
--- OUTSIDE RECORDS SUMMARY | 2022-08-23 15:44 | XMS_ITS | Continuity of Care Document ---
Author Name Unknown Organization [facility] Address [address], [address], [address] [place] [address]- Care Team Providers Care Research Support Specialist Name Role Phone Chava LOUIS, Jennifer Lizarraga Primary Care Physician Encounter [facility] [place] Date(s): 11/28/21 - 12/28/21 [facility] [address], [address], [address] [place] [id number] Attending Physician: Blanca Hernandez Admitting Physician: Admtr, Blanca Referring Physician: Admtr, [id number] Allergies, Adverse Reactions, Alerts No Known Allergies [...] refused. 2Result Note: CDC-VIS sheet given in Colombian, patient refused 3Result Comment: Patient refused. 4Result Note: CDC-VIS sheet given in Colombian, patient refused Medications carbamazepine 200 mg oral [...] 10/15/19 16:42:00 EDT, Route to Pharmacy Electronically, [facility]/pharmacy #[id number], 157.48, cm, 10/15/19 14:13:00 EDT, Height, 80.4, kg,... Start Date: 10/15/19 Status: Ordered gabapentin 400 mg oral capsule 3, capsule, By Mouth, 3 times a day, for 90 days, # 810 capsule, Refills 3, Tot. Refills 3, Physician Stop 07/20/22 16:14:00 EDT, 07/25/21 16:14:00 EDT, Route to Pharmacy Electronically, [facility]/pharmacy#[id number], 157.48, cm, 11/17/19 15:36:00 EDT, Height, 8... Start Date: 07/25/21 Stop Date: 07/20/22 Status: Ordered Vitamin D3 = 2,000 International_Units, By Mouth, Daily, 0 Refills, Maintenance, 12/12/15 11:23:49 Start Date: 12/12/15 Status: Ordered Problem List Condition Confirmation Course Effective Dates Status Health St [facility] Informant Bug bites Confirmed 02/26/14 Active Epilepsy Confirmed 2006 Active Uses Colombian as primary spoken language Confirmed Active Obese class I Confirmed Active Social History Social History Type Response Smoking Status Current some day smo ker entered on: 06/08/14 Sex Patient Care team information Personnel Name: Chava LOUIS, Jennifer Lizarraga Address: Address: [address] [place] [address]- [place]
--- OUTSIDE RECORDS SUMMARY | 2022-08-23 15:44 | XMS_ITS | Continuity of Care Document ---
Author Name Unknown Organization [facility] Address [address] [place] [address]- Care Team Providers Care Staff Psychologist Name Role Phone Gato LOUIS, Bryan Ribeiro Primary Care Physician Encounter [facility] [place] Date(s): 10/15/19 - 10/15/[address] [address]- [facility] Discharge Disposition: A-D/C Home Attending Physician: George Henao MD Admitting Physician: George Henao MD Referring Physician: George Henao MD Allergies, Adverse Reactions, Alerts Substance Reaction Severity [...] refused. 2Result Note: CDC-VIS sheet given in Ethiopian, patient refused 3Result Comment: Patient refused. 4Result Note: CDC-VIS sheet given in Ethiopian, patient refused Medications carbamazepine 200 mg oral [...] 10/15/19 16:42:00 EDT, [id number], cm, 10/15/19 14:13:00 EDT, Height, 80.4, kg,... Start Date: 10/15/19 Status: Ordered gabapentin 400 mg oral capsule See Instructions, # 270 capsule, Refills 11 Tot. Refills 11, TAKE 3 CAPSULE BY MOUTH 3 TIMES A DAY,[facility]/pharmacy #207 Start Date: 01/08/19 Status: Ordered ibuprofen 600 mg oral tablet 600 mg, 1, tablet, By Mouth, 4 times a day, # 40 tablet, Refills 0, Tot. Refills 0, Maintenance, 10/15/19 16:42:00 EDT, Route to Pharmacy Electronically, [facility]/pharmacy #207, 157.48, cm, 10/15/19 14:13:00 EDT, Height, 80.4, kg, 10/15/19 14:13:00 EDT, D... Start Date: 10/15/19 Status: Ordered MiraLax oral powder for reconstitution = 17 Gm, By Mouth, Daily, dissolve in water before taking, # 255 Gm, 0 Refills, Maintenance, 10/15/19 16:42:00 EDT, REC Powder, [facility]/pharmacy #[id number], 17 Gm By Mouth Daily,Instr:dissolve in water beforetaking, 157.48, cm, 10/15/19 14:13:00 EDT, Height,... Start Date: 10/15/19 Status: Ordered Nexplanon 68 mg subcutaneous implant 1 each = 68 mg, Subcutaneous Infusion, Once, [facility] stock device. Placed by Dr. Rajan 10/14/2018 LOT #: [id number] Exp: 07/2020, 0 Refills, Maintenance, 10/15/18 11:40:04 EDT Start Date: 10/15/18 Status: Ordered oxyCODONE 5 mg oral tablet 5 mg, 1, tablet, By Mouth, Every 6 hours, PRN, # 7 tablet, Refills 0, Tot. Refills 0, Acute 10/24/19 16:43:00 EDT, as needed for pain, 10/15/19 16:42:00 EDT, Route to Pharmacy Electronically, [facility]/pharmacy #[id number], Partial fill upon patient request, 157.... Start Date: 10/15/19 Stop Date: 10/24/19 Status: Ordered Tylenol 325 mg oral tablet 650 mg, 2, tablet, By Mouth, Every 4 hours, PRN, # 40 tablet, Refills 0, Tot. Refills 0, Maintenance, for pain, 10/15/19 16:43:00 EDT, Route to Pharmacy Electronically, [facility]/pharmacy #[id number], 157.48, cm, 10/15/19 14:13:00 EDT, Height, 80.4, kg, 10/15/19... Start Date: 10/15/19 Status: Ordered Vitamin D3 = 2,000 International_Units, By Mouth, Daily, 0 Refills, Maintenance, 12/12/15 11:23:49 Start Date: 12/12/15 Status: Ordered Problem List Condition Effective Dates Status Health Status Inform ant Bug bites(Confirmed) 02/26/14 Active Epilepsy(Confirmed) 2006 Active Uses Ethiopian as primary spok en language(Confirmed) Active Vital Signs Most recent to oldest [Reference Range]: 1 2 3 Height 157.48 cm (10/15/19 2:13 PM) 157.48 cm (10/14/19 9:26 AM) Weight 80.4 kg (10/15/19 2:13 PM) 59.09 kg (10/14/19 9:26 AM) Oxygen Saturation [94-100 %] 98 % (10/15/19 5:45 PM) 100 % (10/15/19 5:30 PM) 100 % (10/15/19 5:15 PM) Pulse Rate [55-90 bpm] 56 bpm (10/15/19 2:13 PM) Body Mass Index [18.5-24.99] 32.42 *>HHI* (10/15/19 2:13 PM) 23.83 (10/14/19 9:26 AM) Blood Pressure [90-138/55-84 mm Hg] 130/69mm Hg (10/15/19 5:45 PM) 130/72mm Hg (10/15/19 5:30 PM) 133/67mm Hg (10/15/19 5:15 PM) Respiratory Rate [16-30 br/min] 15 br/min *L* (10/15/19 6:19 PM) 17 br/min (10/15/19 5:45 PM) 18 br/min (10/15/19 5:30 PM) Temperature [96.8-100.4 DegF] 97 DegF (10/15/19 5:30 PM) 97.3 DegF (10/15/19 4:30 PM) 98.6 DegF (10/15/19 2:13 PM) Liters per Minute 5 L/min (10/15/19 5:15 PM) 5 L/min (10/15/19 5:00 PM) 5 L/min (10/15/19 4:45 PM) Mode of Delivery (Oxygen) Room air (10/15/19 5:45 PM) Room air (10/15/19 5:30 PM) Simple face mask (10/15/19 5:15 PM) Blood pressure sites Arm, right (10/15/19 4:30 PM) Arm, right (10/15/19 2:13 PM) Temperature Route Temporal (10/15/19 5:30 PM) Temporal (10/15/19 4:30 PM) Temporal (10/15/19 2:13 PM) Dry Weight 80.4 kg (10/15/19 2:13 PM) 59.09 kg (10/14/19 9:26 AM) Weight Obtained Via Standing scale (10/15/19 2:13 PM) Patient/family stated (10/14/19 9:26 AM) Dry Weight Obtained Via Standing scale (10/15/19 2:13 PM) Patient/family stated (10/14/19 9:26 AM) Social History Social History Type Response Smoking Status Current some day smo ker entered on: 06/08/14 Sex
--- OUTSIDE RECORDS SUMMARY | 2022-08-23 15:44 | XMS_ITS | Continuity of Care Document ---
Author Name Unknown Organization [facility] Address [address] [place] [address]- Care Team Providers Care In Home Sales Consultant Name Role Phone Gato LOUIS, Bryan Ribeiro Primary Care Physician Encounter [facility] Date(s): 06/24/19 - 07/04/[address] [address]- [facility] Attending Physician: Blanca Hernandez Admitting Physician: Blanca Hernandez Referring Physician: AdmtrBlanca Allergies, Adverse Reactions, Alerts Substance Reaction Severity [...] refused. 2Result Note: CDC-VIS sheet given in Armenian, patient refused 3Result Comment: Patient refused. 4Result Note: CDC-VIS sheet given in Armenian, patient refused Medications carbamazepine 200 mg oral [...] Replace Required Details, Route to Pharmacy Electronically, [id number]... Start Date: 10/23/18 Status: Ordered gabapentin 400 mg oral capsule See Instructions, # 270 capsule, Refills 11 Tot. Refills 11, TAKE 3 CAPSULE BY MOUTH 3 TIMES A DAY,[facility]/pharmacy #[id number] Start Date: 01/08/19 Status: Ordered Nexplanon 68 mg subcutaneous implant 1 each = 68 mg, Subcutaneous Infusion, Once, [facility] stock device. Placed by Dr. Rajan 10/14/2018 LOT #: [id number] Exp: 07/2020, 0 Refills, Maintenance, 10/15/18 11:40:04 EDT Start Date: 10/15/18 Status: Ordered Vitamin D3 = 2,000 International_Units, By Mouth, Daily, 0 Refills, Maintenance, 12/12/15 11:23:49 Start Date: 12/12/15 Status: Ordered Problem List Condition Effective Dates Status Health Status Inform ant Bug bites(Confirmed) 02/26/14 Active Epilepsy(Confirmed) 2006 Active Uses Armenian as primary spok en language(Confirmed) Active Social History Social History Type Response Smoking Status Current some day smo ker entered on: 06/08/14 Sex
[2022-08-23 16:26] VITALS: BP 113/62; PULSE 65; RESP 18; O2SAT 99
== END 2022-08-23 16:27 | disposition home or self-care (01) ==
PROVIDERS: Emergency Provider Emergency Medicine; PCP Registered Nurse
DX: L25.9 Unspecified contact dermatitis, unspecified cause (principal); Z79.899 Other long term (current) drug therapy
CPT/HCPCS: 99283; 99284

== ENCOUNTER 2023-02-21 08:58 | Outpatient (REF) | payer MEDICAID, SELFPAY ==
[2023-02-21 12:07] LABS: Estimated Average Glucose 91 mg/dL; Hemoglobin A1c % 4.8 % (<6.0)
[2023-02-21 12:09] LABS: Hematocrit 40.1 % (37.0-47.0); Hemoglobin 13.2 g/dl (12.0-16.0); Mean Corpuscular HGB Conc 32.9 g/dl (31.0-35.0); Mean Corpuscular Hemoglobin 32.4 pg (27.0-33.0); Mean Corpuscular Volume 98.3 fL (80.0-98.0); Mean Platelet Volume 9.2 fL (9.4-12.3); Platelet Count 309 X10*3/uL (160-400); Red Blood Count 4.08 X10*6/uL (4.20-5.50); Red Cell Distribution Width 12.8 % (11.0-16.0); White Blood Count 6.5 X10*3/uL (4.8-10.8)
[2023-02-21 12:21] LABS: Alanine Aminotransferase 20 U/L (0-31); Albumin Level 4.1 g/dL (3.5-5.0); Alkaline Phosphatase 79 U/L (39-117); Anion Gap 10 (12-20); Aspartate Amino Transferase 20 U/L (5-31); Bilirubin Total 0.2 mg/dL (0.0-1.0); Blood Urea Nitrogen 8 mg/dL (9-16); Carbon Dioxide 26 mmol/L (22-29); Chloride 105 mmol/L (96-108); Cholesterol 214 mg/dL (<200); Estimated Glomerular Filt Rate > 60; Glucose Random 81 mg/dL (60-115); HDL Cholesterol 66 mg/dL (>40); LDL Cholesterol Calculated 134 mg/dL (<100); Potassium 3.9 mmol/L (3.3-5.1); Sodium 137 mmol/L (135-145); Total Protein 6.9 g/dL (6.5-8.0); Triglycerides 73 mg/dL (<150)
[2023-02-21 12:38] LABS: HBS Num1 1.43 mIU/mL (0-7.99); HBc Num1 0.15 S/CO (0.00-0.79); HIV AB/AG Nonreactive (Nonreactive); HIV Num 1 0.05 S/CO (0.00-0.99); Hepatitis B Core Antibody Nonreactive (Nonreactive); ~HepC Num1 0.14 S/CO (0.00-0.79); ~Hepatitis B Surface Antibody NONREACTIVE (Nonreactive); ~Hepatitis C Antibody Nonreactive (Nonreactive)
[2023-02-21 12:39] LABS: Hepatitis B Surface Antigen Negative (Negative)
[2023-02-21 12:40] LABS: Syphilis Screen Nonreactive (Nonreactive)
[2023-02-21 12:42] LABS: TSH reflex Free T4 1.13 uIU/mL (0.32-4.0)
[2023-02-22 03:56] LABS: CT PCR NOT DETECTED (Not Detect.); NG PCR NOT DETECTED (Not Detect.)
== END 2023-02-21 08:59 | disposition home or self-care (01) ==
LOC: HO.HHCL 08:58
PROVIDERS: Visit Provider Student in an Organized Health Care Education/Training Program
DX: Z00.00 Encounter for general adult medical examination without abnormal findings (principal); Z11.4 Encounter for screening for human immunodeficiency virus [HIV]
CPT/HCPCS: 0353U; 36415; 80053; 80061; 83036; 84443; 85027; 86704; 86706; 86780; 86803; 87340; 87389

== ENCOUNTER 2023-03-27 | Outpatient (REF) | payer MEDICAID, SELFPAY | END 2023-03-27 00:01 | LOC: HO.HHCLNP | PROVIDERS: Visit Provider Advanced Practice Midwife | DX: Z12.4 Encounter for screening for malignant neoplasm of cervix (principal); N89.8 Other specified noninflammatory disorders of vagina | CPT/HCPCS: 87480; 87510; 87660; 88142 ==

== ENCOUNTER 2024-01-23 09:17 | Outpatient (REF) | payer MEDICAID, SELFPAY ==
[2024-01-23 11:18] LABS: Hemoglobin 12.4 g/dl (12.0-16.0); Mean Corpuscular HGB Conc 33.5 g/dl (31.0-35.0); Mean Corpuscular Hemoglobin 32.7 pg (27.0-33.0); Mean Corpuscular Volume 97.6 fL (80.0-98.0); Mean Platelet Volume 9.1 fL (9.4-12.3); Platelet Count 303 X10*3/uL (160-400); Red Blood Count 3.79 X10*6/uL (4.20-5.50); Red Cell Distribution Width 12.3 % (11.0-16.0); White Blood Count 5.9 X10*3/uL (4.8-10.8)
[2024-01-23 11:24] LABS: Estimated Average Glucose 91 mg/dL; Hemoglobin A1C 91.0254 umol/L; Hemoglobin A1c % 4.8 % (<6.0); Total Hemoglobin (HGBA1C) 3181.8058 umol/L
[2024-01-23 11:49] LABS: HBS Num1 3.16 mIU/mL (0-7.99); HBc Num1 0.09 S/CO (0.00-0.79); HBsAGNum1 0.31 S/CO (0.00-0.99); HIV AB/AG Nonreactive (Nonreactive); HIV Num 1 0.05 S/CO (0.00-0.99); Hepatitis B Core Antibody Nonreactive (Nonreactive); Hepatitis B Surface Antigen Negative (Negative); ~HepC Num1 0.14 S/CO (0.00-0.79); ~Hepatitis B Surface Antibody NONREACTIVE (Nonreactive); ~Hepatitis C Antibody Nonreactive (Nonreactive)
[2024-01-23 11:51] LABS: Alanine Aminotransferase 27 U/L (0-31); Alkaline Phosphatase 66 U/L (39-117); Anion Gap 9 (12-20); Aspartate Amino Transferase 21 U/L (5-31); Bilirubin Total 0.2 mg/dL (0.0-1.0); Blood Urea Nitrogen 4 mg/dL (9-16); Calcium 9.2 mg/dL (8.4-10.2); Carbon Dioxide 28 mmol/L (22-29); Chloride 108 mmol/L (96-108); Cholesterol 188 mg/dL (<200); Estimated Glomerular Filt Rate > 60; Glucose Random 81 mg/dL (60-115); HDL Cholesterol 51 mg/dL (>40); LDL Cholesterol Calculated 125 mg/dL (<100); Potassium 3.8 mmol/L (3.3-5.1); Sodium 141 mmol/L (135-145); Total Protein 6.6 g/dL (6.5-8.0); Triglycerides 61 mg/dL (<150)
[2024-01-23 11:53] LABS: Syphilis Screen Nonreactive (Nonreactive)
[2024-01-23 11:58] LABS: Folate 19.1 ng/mL (> or = 4.0); Vitamin B12 382 pg/mL (200-900)
[2024-01-23 14:56] LABS: CT PCR NOT DETECTED (Not Detect.); NG PCR NOT DETECTED (Not Detect.)
== END 2024-01-23 09:18 | disposition home or self-care (01) ==
LOC: HO.HHCL 09:17
PROVIDERS: Visit Provider Student in an Organized Health Care Education/Training Program
DX: Z00.00 Encounter for general adult medical examination without abnormal findings (principal); Z11.4 Encounter for screening for human immunodeficiency virus [HIV]; Z11.3 Encounter for screening for infections with a predominantly sexual mode of transmission
CPT/HCPCS: 36415; 80053; 80061; 82607; 82746; 83036; 84443; 85027; 86704; 86706; 86780; 86803; 87340; 87389; 87491; 87591